=== PATIENT | female | born 1970 | race Caucasian/White ===

== ENCOUNTER → 2017-02-13 | Outpatient (CLI) | payer MEDICARE ==
[2016-01-29 15:15] VITALS: BP 124/70
[~2017-02-13] MED LIST: BUPR200T PO; CHOL500016 PO; ESOM40CA PO; HYDR-971 PO; MONT10TA9 PO; RANI300T3 PO; TRAM50TA PO; TRAZ100T12 PO
--- NOTE | 2017-02-14 17:12 | RAD ---
DATE: 02/13/2017 EXAM: MAMMO CHILO SCREENING BILATERAL HISTORY: Routine screening mammogram COMPARISON: None. The breast parenchyma shows scattered fibroglandular densities. Breast parenchyma level B. FINDINGS: Digital 2-D and 3-D CC and MLO tomosynthesis views of both breasts. There is an intramammary lymph node in the medial right breast. There are punctate benign-appearing calcifications in the left breast. No suspicious mass, calcification or architectural distortion in either breast. IMPRESSION: No mammographic evidence to suggest malignancy. BI-RADS 2 benign. Recommend routine screening mammogram in 12 months. BI-RADS CATEGORY: 2 BENIGN FINDING(S) RECOMMENDED FOLLOW-UP: 12M 12 MONTH FOLLOW-UP PQRS compliance statement: Patient information was entered into a reminder system with a target due date February 2018 for the next mammogram. Mammography is a sensitive method for finding small breast cancers, but it does not detect them all and is not a substitute for careful clinical examination. A negative mammogram does not negate a clinically suspicious finding and should not result in delay in biopsying a clinically suspicious abnormality. "Our facility is accredited by the [employer] Mammography Program."
== END | disposition home or self-care (01) ==
LOC: KCIC MAMMO 13:32
PROVIDERS: ATTEND Family Medicine
DX: Z12.31 Encounter for screening mammogram for malignant neoplasm of breast (principal)
CPT/HCPCS: 77063; G0202; 77067